=== PATIENT | male | born 1950 | race Caucasian/White ===

== ENCOUNTER 2018-08-04 12:54 | Emergency (ER) | payer OTHER, MEDICAID ==
[~2018-08-04] VITALS: Wt 92.0 kg
[2018-08-04 12:56] VITALS: BP 160/84; PULSE 90; RESP 18
[2018-08-04] MEDS ORDERED: LIDOCAINE 2% (MDV) 20 ML INJ INJ STA (14:20)
--- NOTE | 2018-08-04 14:51 | ERD ---
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 LACERATION TO FOREHEAD. BLEEDING CONTROLLED. NO LOC HPI This is a 68-year-old male with a history of intellectual disability, htn, diabetes mellitus and hypercholesteremia who presents ED with facial laceration status [place]. 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 Denies headache, worst headache of life, blurry vision, changes in vision, weakness, dizziness, nausea or vomiting and all other symptoms. Does not take blood thinners daily. ROS All systems reviewed and are negative except as per history of present illness. Allergies Allergies: Coded Allergies: No Known Allergy (Unverified , 08/04/18) PMhx/Soc Hx Cardiac Disorders: Yes (HTN) Hx Miscellaneous Medical Probl: Yes (DM) Hx Alcohol Use: No Hx Substance Use: No Hx Tobacco Use: Yes Smoking Status: Former smoker Physical Exam Vitals Vital Signs Date Temp Pulse Resp B/P (MAP) Pulse Ox O2 O2 Flow FiO2 Time Delivery Rate 08/04/18 98.0 90 18 160/84 99 12:56 (109) Physical Exam Physical Exam Vitals signs: Reviewed by me. General: Well developed, well nourished, in no acute distress. Patient is awake and alert. Head: Normocephalic, atraumatic. 6 cm laceration extending from nose to forehead over right eyebrow, linear, no active bleeding Eyes: Normal conjunctiva, Pupils PERRLA, EOM intact grossly ENT: Pharynx is clear, Moist mucous membranes, external ears, nose and mouth normal Neck: Supple, no masses, lymphadenopathy or JVD Respiratory: Clear to auscultation bilaterally with no wheezing, rhonchi, rales, no distress Cardiovascular: RRR, no murmurs, rubs, or gallops MSK: No edema, no unilateral swelling, 5/5 strength Back: No midline tenderness. No flank tenderness Neurologic: Alert and oriented, moving all extremities, normal speech, no focal weakness, no cerebellar signs. Normal mentation Neuro: M/S: Alert and oriented Face: EOMI, face and pharynx with normal sensation and function Motor: Normal strength throughout Sensation: Normal sensation throughout Speech: Normal Cerebel: Normal coordination Normal gait Normal finger to nose Cranial nerves II through XII intact bilaterally Skin: warm and dry, No rash Psych: Normal mood Results 24 hrs Current Medications Medications Dose Sig/Mahamed Start Time Status Last (Trade) Ordered Route PRN Stop Time Admin Dose Reason Admin Lidocaine 20 ml ONCE STAT 08/04/18 DC (Xylocaine INJ 14:20 2% (Mdv) 20 08/04/18 14:23 ml) Procedures/MDM EKG, MONITORS, & DIAGNOSTIC IMAGING: [place] [address] Radiology Main Line: [phone] DIAGNOSTIC IMAGING REPORT Patient: FANNY ARRINGTON : 1950 Age: 68 Sex: M MR #: [id number] DOS: 08/04/18 1420 Ordering MD: SNEHA ABBOTT PA-C Location: [facility] Room/Bed: PROCEDURE: Noncontrast CT Head. CLINICAL INDICATION: Trauma. Status post fall. Laceration. TECHNIQUE: Noncontrast CT of the head was obtained. The administered radiation dose was CTDI vol = 38.71 mGy, DLP = 698.95 mGy-cm. One or more of the following dose reduction techniques were used: Automated exposure control, Adjustment of the mA and/or kV according to patient size, or Use of iterative reconstruction technique. DICOM images are available. COMPARISON: There are no similar studies submitted for comparison. FINDINGS: There is minimal generalized cerebral volume loss. There is no loss of hopper-white differentiation to suggest acute territorial infarction. There is no acute intracranial hemorrhage or extra-axial fluid collection. There is no mass effect. No midline shift is identified. The orbits are within normal limits. There is mild left maxillary sinus mucosal thickening. No destructive osseous lesion is identified. There is minimal frontal scalp hematoma with laceration. IMPRESSION: 1. No acute intracranial hemorrhage or extra-axial fluid collection. 2. Minimal generalized cerebral volume loss. 3. Minimal frontal scalp hematoma with laceration. Further findings as detailed above. RPTAT: HVF .Rod Wise MD, MD Date Time Electronically viewed and signed by .Rod Wise MD, on 08/04/2018 15:36 .F/ CC: SNEHA ABBOTT PA-C [id number] [place] [address] Radiology Main Line: [phone] DIAGNOSTIC IMAGING REPORT Patient: FANNY ARRINGTON : 1950 Age: 68 Sex: M MR #: [id number] DOS: 08/04/18 1420 Ordering MD: SNEHA ABBOTT PA-C [facility] Room/Bed: PROCEDURE: CT Cervical Spine without contrast. CLINICAL INDICATION: Trauma. Status post fall. TECHNIQUE: Noncontrast CT of the cervical spine was performed with axial images. Coronal and sagittal images were also performed. The administered radiation dose was CTDI vol = 22.38 mGy, DLP = 662.76 mGy-cm. One or more of the following dose reduction techniques were used: Automated exposure control, Adjustment of the mA and/or kV according to patient size, or Use of iterative reconstruction technique. DICOM images are available. COMPARISON: There are no similar studies submitted for comparison. FINDINGS: There is reversal of the cervical lordosis suggesting muscle spasm and/or degenerative changes. The vertebral body heights are maintained. There is no destructive osseous lesion. No acute fracture is identified. C2-C3 : There is moderate disc space narrowing. There is trace anterolisthesis with a circumferential disc osteophyte complex without spinal canal stenosis. There is severe left and moderate facet arthropathy without bilateral foraminal stenosis. C3-C4 : There is mild disc space narrowing. There is trace anterolisthesis with a broad-based disc osteophyte complex with mild spinal canal stenosis. There is severe left and moderate facet arthropathy and bilateral uncovertebral hypertrop hy causing severe left and moderate to severe right foraminal stenosis. This affects the exiting bilateral C4 nerve roots. C4-C5 : There is moderate disc space narrowing. There is trace anterolisthesis with a circumferential disc osteophyte complex mildly indenting the spinal cord with mild to moderate spinal canal stenosis. There is severe right and moderate left facet arthropathy and bilateral uncovertebral hypertrophy causing severe bilateral foraminal stenosis. This affects the exiting bilateral C5 nerve roots. C5-C6 : There is severe disc space narrowing. There is a 4 mm circumferential disc osteophyte complex impinging the spinal cord with severe spinal canal stenosis. There is moderate facet arthropathy and bilateral uncovertebral hypertrophy causing severe bilateral foraminal stenosis. This affects the exiting bilateral C6 nerve roots. C6-C7 : There is severe disc space narrowing. There is a 5 mm central disk/osteophyte protrusion impinging the spinal cord with moderate to severe spinal canal stenosis. There is moderate facet arthropathy and bilateral uncovertebral hypertrophy causing severe bilateral foraminal stenosis. This affects the exiting bilateral C7 nerve roots. C7-T1 : There is mild disc space narrowing. There is no disc herniation or spinal canal stenosis. There is mild facet arthropathy with mild bilateral foraminal stenosis. IMPRESSION: 1. No acute fracture or subluxation. 2. Multilevel spinal canal stenosis with C5-C6 severe and C6-C7 moderate to severe spinal canal stenosis with spinal cord impingement is levels could If clinically concerned for spinal cord contusion, noncontrast MRI of the cervical spine may be performed as clinically warranted. 3. Multilevel bilateral foraminal stenosis affecting the exiting bilateral C4, bilateral C5, bilateral C6, and bilateral C7 nerve roots as detailed above. 4. Reversal of the cervical lordosis suggesting muscle spasm and/or degenerative changes. Further findings as detailed above. RPTAT: HVF .Rod Wise MD, Date Time Electronically viewed and signed by .Rod Wise MD, MD on 08/04/2018 15:44 .F/ CC: SNEHA ABBOTT PA-C [id number] PROCEDURES: Laceration Repair by me: Anesthesia: 1% lidocaine locally Location: face inbetween eyebrow extending vertically and then horizontally above right eyebrow Tendon/Joint/Nerves: No injury Foreign body: None detected after copious irrigation and exploration Technique: 9 Simple Interrupted Sutures Complexity: No subcutaneous sutures/mucosal repair/edge excision Post Closure Length: 6cm Patient's bleeding was easily controlled in the department and there is no indication of anemia. No evidence of compartment syndrome, neurologic injury, vascular injury, open joint, tendon laceration, or foreign body. Patient is appropriate for outpatient follow up. 48 hour wound check. Scar minimization instructions given. ER COURSE: The patient was stable throughout ED course. I kept the patient and/or family informed of laboratory and diagnostic imaging results throughout the emergency room course. The patient was promptly evaluated and a treatment plan was devised based on H&P and other data. This plan was discussed with the patient who agreed and had no further questions or concerns prior to discharge. MEDICAL DECISION MAKING: This is a 68-year-old male with a history of intellectual disability hypertension and diabetes mellitus who is brought in by bearing maker with laceration to forehead that was sustained after he tripped and fell [place] a [place] a park earlier today. Physical examination is remarkable for scalp hematoma and laceration that is 6 cm in length. Proceeded with ordering CT of head without contrast as well as cervical CT to rule out any emergency. CT of head shows no acute intracranial hemorrhage CT cervical spine does not show any fractures or subluxations. Laceration was repaired in ED and instructions for post care were discussed. No evidence of intracranial hemorrhage, subarachnoid hemorrhage, epidural hematoma, subdural hematoma, midline shift, skull fracture, neck fracture, subluxation, among others. Patient's vitals are stable and pt can be managed with close out patient follow up. Advised patient to return to ED or to be seen by primary care for a 48 hour wound check. Pt will also need to r eturn to ED or be seen by primary care provider to have sutures removed in 02-22 will treat patient conservatively for concussion. Advised no NSAIDs and only Tylenol for pain. Return to ED with any worsening symptoms. DISPOSITION PLAN: We discussed follow up with the patient's primary care doctor within 24 to 48 hours. Patient counseled regarding my diagnostic impression and care plan. Prior to discharge all questions answered. Pt agrees with treatment plan and understands strict return precautions. Precautionary instructions provided including instructions to return to the ER if not improving or for any worsening or changing symptoms or concerns. SPECIALIST FOLLOW UP RECOMMENDED: None Patient has been advised to follow up with primary care in 1-2 days. Disclaimer: Inadvertent spelling and grammatical errors are likely due to EHR/dictation software use and do not reflect on the overall quality of patient care. Also, please note that the electronic time recorded on this note does not necessarily reflect the actual time of the patient encounter. Departure Diagnosis: Primary Impression: Laceration of face without complication Encounter type: initial encounter Qualified Codes: S01.81XA - Laceration without foreign body of other part of head, initial encounter Additional Impressions: Closed head injury Encounter type: initial encounter Qualified Codes: S09.90XA - Unspecified injury of head, initial encounter Hematoma of face Encounter type: initial encounter Qualified Codes: S00.83XA - Contusion of other part of head, initial encounter Condition: Stable Patient Instructions: HEAD INJURY, No Wake-Up (Adult), Laceration, Face (Suture Or Tape) Referrals: [facility] Additional Instructions: Return in 2 days for wound check. We will also need to have sutures taken out in 10-12 days. Patient advised to return to the ED immediately for new or worsening symptoms. Patient advised to follow up with primary care provider in the next 24-48 hours. Patient verbalized understanding and agrees with treatment plan and course of action. If patient has no primary care they may follow up with one of the community clinics listed on the following page or one of the options listed below [facility] [address] [place] [address] or [facility] [address] [place] [address] or [facility] [address] [place] [address] SNEHA ABBOTT PA-C Aug 04, 2018 14:51
== END 2018-08-04 16:15 | disposition home or self-care (01) ==
LOC: FTE 12:54
DX: S01.81XA Laceration without foreign body of other part of head, initial encounter (principal); S09.90XA Unspecified injury of head, initial encounter; I10 Essential (primary) hypertension; E11.9 Type 2 diabetes mellitus without complications; W18.09XA Striking against other object with subsequent fall, initial encounter; Y92.89 Other specified places as the place of occurrence of the external cause; Z87.891 Personal history of nicotine dependence
CPT/HCPCS: 70450; 72125